=== PATIENT | male | born 2000 | race Caucasian/White ===

== ENCOUNTER 2021-08-31 10:02 | Emergency (ER) | payer OTHER ==
[~2021-08-31] VITALS: Ht 172.7 cm; Wt 61.2 kg
[2021-08-31 10:04] VITALS: BP 122/71
[2021-08-31] MEDS ORDERED: TRAZODONE HCL50 MG PO (10:08)
[2021-08-31] MEDS ORDERED: NALTREXONE HCL50 MG PO (10:08)
[2021-08-31] MEDS ORDERED: OFLOXACIN5 M1 RT. EAR (10:57)
[2021-08-31] MEDS ORDERED: IBUPROFEN 800800 MG PO (10:57)
[2021-08-31] MEDS ORDERED: AUGMENTIN 875-1 EACH PO (10:57)
== END 2021-08-31 11:55 | disposition home or self-care (01) ==
LOC: ER 10:02
DX: H60.91 Unspecified otitis externa, right ear (principal); H66.91 Otitis media, unspecified, right ear; F32.9 Major depressive disorder, single episode, unspecified; F10.10 Alcohol abuse, uncomplicated; F17.210 Nicotine dependence, cigarettes, uncomplicated; Z79.891 Long term (current) use of opiate analgesic; Z79.899 Other long term (current) drug therapy